=== PATIENT | male | born 1945 | race Caucasian/White ===

== ENCOUNTER → 2024-07-30 | Outpatient (CLI) | payer MEDICARE, BC, SELFPAY ==
--- NOTE | 2024-07-30 | XR_ITS ---
Examination: PA lateral chest 2 views Technique: Upright PA lateral chest 2 views Exam date and time: July 30, 2024 at 0712 hrs. Comparison January 16, 2023 Indications: Shortness of breath congestion beginning 2 weeks ago. Findings: Suspicious for early right perihilar pneumonia There is scarring at the right cardiophrenic angle noted on the prior chest film No pulmonary edema Significant osteopenia Impression: Suspicious for early right perihilar pneumonia
[2024-07-30 08:39] LABS: Basophils % (Auto) 1 % (0-2.5); Eosinophils % (Auto) 4 % (0-10); Hematocrit 33.8 % (41.0-53.0); Hemoglobin 11.9 g/dL (13.5-16.0); Lymphocytes # (Auto) 2.1 Thou/mm3 (1.0-4.8); Lymphocytes % (Auto) 33 % (10-50); Mean Corpuscular HGB Conc 35.2 g/dl (31.0-37.0); Mean Corpuscular Hemoglobin 42.5 pg (25.0-35.0); Mean Corpuscular Volume 121 fL (80-100); Monocytes # (Auto) 0.4 Thou/mm3 (0.0-0.8); Monocytes % (Auto) 6 % (0-12); Neutrophils # (Auto) 3.7 Thou/mm3 (1.8-7.7); Neutrophils % (Auto) 56 % (37-80); Platelet Count 333 Thou/mm3 (140-440); RDW Standard Deviation 62.4 fL (35.1-43.9); White Blood Count 6.5 Thou/mm3 (3.8-10.6)
[2024-07-30 08:40] LABS: Eosinophils # (Auto) 0.3 Thou/mm3 (0.0-0.5); Immature Granulocytes % (Auto) 0 % (0-0); Immature Granulocytes Auto 0.02 Thou/mm3 (0.00-0.00); Nucleated Red Blood Cell % 0 /100 WBC (0)
[2024-07-30 09:02] LABS: B-Type Natriuretic Peptide 69 pg/mL (0-100); Sed Rate (ESR) 11 mm/hr (0-20)
[2024-07-30 09:41] LABS: Alanine Aminotransferase 19 U/L (10-49); Albumin, Serum 4.5 gm/dL (3.4-4.8); Albumin/Globulin Ratio 2.3 (1.2-2.2); Alkaline Phosphatase 94 U/L (46-116); Anion Gap 6 (7-16); Aspartate Amino Transferase 22 U/L (0-34); BUN/Creatinine Ratio 13 Ratio (12-20); Bilirubin,Total 0.7 mg/dL (0.3-1.2); Blood Urea Nitrogen 17 mg/dL (9-23); Calcium 9.5 mg/dL (8.3-10.6); Calcium (Corrected) 9.5 mg/dL (8.5-10.1); Carbon Dioxide 24.6 mMol/L (20.0-31.0); Chloride 111 mMol/L (98-107); Creatinine (Component) 1.3 mg/dL (0.6-1.3); Glucose 117 mg/dL (74-106); Osmolality,Calculated 285 (275-295); Potassium 4.7 mMol/L (3.4-5.1); Sodium 142 mMol/L (136-145); Total Protein 6.5 gm/dL (5.7-8.2); eGFR 55 See Note
[2024-07-30 17:36] LABS: Path Review Blood Smear Sent to Pathologist
== END | disposition home or self-care (01) ==
LOC: CDIM 06:46 → COPL 07:18
PROVIDERS: PCP Internal Medicine; Referring Provider Internal Medicine; Visit Provider Radiology Diagnostic Radiology
DX: R05.3 Chronic cough (principal); R06.09 Other forms of dyspnea; R22.9 Localized swelling, mass and lump, unspecified
CPT/HCPCS: 36415; 71046; 80053; 83880; 85025; 85652

== ENCOUNTER 2024-12-02 18:03 | Emergency (ER) | payer MEDICARE, BC, SELFPAY ==
--- NOTE | 2024-12-02 18:15 | EKG_ITS ---
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
--- NOTE | 2024-12-02 18:20 | XR_ITS ---
Examination: PA lateral chest 2 views TECHNIQUE: Upright PA lateral chest 2 views Exam date and time: December 02, 2024 1831 hours Comparison July 30, 2024 INDICATIONS: Shortness of breath months FINDINGS: Mild prominence left ventricle There appear to be bilateral old rib fractures but clinical correlation advised No pulmonary edema Mild opacity right base suspicious for early pneumonia IMPRESSION: Suspicious for early pneumonia right base As clinically warranted, consider bilateral rib series follow-up
--- NOTE | 2024-12-02 18:20 | PD.EDRME ---
Rapid Medical Screening Exam RME Arrival date/time: 12/02/24 18:03 79 yo m present to ED for c/o of elevated k 6.1 today I have greeted and performed a focused initial assessment of this patient. A comprehensive ED assessment and evaluation of the patient, analysis of all test results, and completion of the medical decision making process will be conducted by additional ED providers. Chief Complaint: General Adult/Misc Complain
[2024-12-02 18:35] VITALS: BP 142/84; PULSE 84; RESP 18; TEMP 37.1; O2SAT 96; BMI 32.8
[2024-12-02 19:30] LABS: Basophils % (Auto) 1 % (0-2.5); Eosinophils # (Auto) 0.3 Thou/mm3 (0.0-0.5); Eosinophils % (Auto) 4 % (0-10); Hematocrit 35.3 % (41.0-53.0); Hemoglobin 12.3 g/dL (13.5-16.0); Immature Granulocytes % (Auto) 0 % (0-0); Immature Granulocytes Auto 0.01 Thou/mm3 (0.00-0.00); Lymphocytes # (Auto) 2.8 Thou/mm3 (1.0-4.8); Lymphocytes % (Auto) 40 % (10-50); Mean Corpuscular HGB Conc 34.8 g/dl (31.0-37.0); Mean Corpuscular Hemoglobin 38.7 pg (25.0-35.0); Mean Corpuscular Volume 111 fL (80-100); Monocytes # (Auto) 0.5 Thou/mm3 (0.0-0.8); Monocytes % (Auto) 7 % (0-12); Neutrophils # (Auto) 3.4 Thou/mm3 (1.8-7.7); Neutrophils % (Auto) 49 % (37-80); Nucleated Red Blood Cell % 0 /100 WBC (0); Platelet Count 273 Thou/mm3 (140-440); Red Blood Count 3.18 Miln/mm3 (4.50-5.90); White Blood Count 7.1 Thou/mm3 (3.8-10.6)
[2024-12-02 19:53] LABS: B-Type Natriuretic Peptide 28 pg/mL (0-100)
[2024-12-02 20:05] LABS: Alanine Aminotransferase 12 U/L (10-49); Albumin, Serum 4.3 gm/dL (3.4-4.8); Albumin/Globulin Ratio 1.8 (1.2-2.2); Alkaline Phosphatase 61 U/L (46-116); Anion Gap 10 (7-16); Aspartate Amino Transferase 14 U/L (0-34); BUN/Creatinine Ratio 14 Ratio (12-20); Bilirubin,Total 0.5 mg/dL (0.3-1.2); Blood Urea Nitrogen 23 mg/dL (9-23); Calcium 9.4 mg/dL (8.3-10.6); Calcium (Corrected) 9.4 mg/dL (8.5-10.1); Carbon Dioxide 21.5 mMol/L (20.0-31.0); Chloride 109 mMol/L (98-107); Creatinine (Component) 1.7 mg/dL (0.6-1.3); Globulin 2.4 gm/dL (2.3-3.5); Glucose 141 mg/dL (74-106); Lipase 77 U/L (12-53); Magnesium 1.8 mg/dL (1.6-2.6); Osmolality,Calculated 285 (275-295); Potassium 5.3 mMol/L (3.4-5.1); Sodium 140 mMol/L (136-145); Total Protein 6.7 gm/dL (5.7-8.2); Troponin I < 0.002 ng/mL (0.0-0.045); eGFR 40 See Note
[2024-12-02 21:02] VITALS: BP 164/83; PULSE 79; RESP 18; TEMP 36.6; O2SAT 97
--- NOTE | 2024-12-02 21:13 | PC.NURSE ---
Pt to room 7 at this time from lobby; assumed care.
--- NOTE | 2024-12-02 21:16 | PD.EDADULT ---
ED General RME/HPI General Chief complaint: General Adult/Misc Complain Stated complaint: K+ ELEVATED, [facility] Arrival date/time: 12/02/24 18:03 RME / HPI RME / HPI narrative: 12/02/24 18:03 79 yo m present to ED for c/o of elevated k 6.1 today I have greeted and performed a focused initial assessment of this patient. A comprehensive ED assessment and evaluation of the patient, analysis of all test results, and completion of the medical decision making process will be conducted by additional ED providers. Dr. Alamo?s Main ED Evaluation: 79yo male presents to the ED for a chief complaint of abnormal labs. Patient states he had labs done at [facility] in [place] today. He states he received a call at 1700 and was told to come in for evaluation due to his Potassium being elevated at 6.1. Patient denies any chest pain, palpitations, shortness of breath or any other associated symptoms. Related Data Allergies Allergy/AdvReac Type Severity Reaction Status Date / Time Penicillins Allergy Severe DYSPNEA Verified 12/02/24 18:07 acetaminophen Allergy Intermediate WELTS Verified 12/02/24 18:07 Review of Systems Review of Systems Systems Reviewed: All systems reviewed, normal except as documented Past Medical History Social History SMOKING STATUS: Former smoker ED Exam Narrative Physical exam: GENERAL APPEARANCE: alert and oriented x 4, well-developed, well-nourished, no acute distress VITALS: All vitals were reviewed and the pulse ox is 97% on room air, which is normal according to my interpretation. HEENT: Normocephalic, atraumatic; pupils equal, round, reactive to light; EOMI; mucous membranes pink, moist; oropharynx clear NECK: Supple LUNGS: CTABL; no wheezes, no rales, no rhonchi HEART: Regular rate, regular rhythm; normal S1, S2; no murmurs ABDOMEN: non distended; normal BS; soft, no tenderness, no guarding, no rebound; no masses, no organomegaly, no hernia BACK: no CVA tenderness EXTREMITIES: atraumatic; no edema NEUROLOGIC: awake; alert and oriented x4; cranial nerves II-XII grossly intact; no focal sensory or motor deficits PSYCHIATRIC: appropriate mood and affect SKIN: warm, dry, normal color; no rashes Course Course Course Narrative: CXR is ordered for determining the etiology of shortness of breath per SHEREEN Rodrigues. Quality Measures none Orders Category Date Time Status EKG (ED ONLY) *Do not use* NOW Care 12/02/24 18:15 Completed IV [Insert IV] STAT Care 12/02/24 18:20 Completed EKG (ED Only) Stat Exams 12/02/24 18:15 Draft XR chest 2V Stat Exams 12/02/24 18:20 Completed BNP [B-Type Natriuretic Peptide] Stat Lab 12/02/24 19:10 Completed CBC Stat Lab 12/02/24 19:10 Completed CMP [Comprehensive Metabolic Panel] Stat Lab 12/02/24 19:10 Completed Lipase Stat Lab 12/02/24 19:10 Completed Mag [Magnesium] Stat Lab 12/02/24 19:10 Completed Troponin I Stat Lab 12/02/24 19:10 Completed Vital Signs Vital signs: Vital Signs Temperature 98.7 F 12/02/24 18:35 Pulse Rate 84 12/02/24 18:35 Respiratory Rate 18 12/02/24 18:35 Blood Pressure 142/84 H 12/02/24 18:35 Pulse Oximetry (%) 96 12/02/24 18:35 Oxygen Delivery Method Room Air 12/02/24 18:35 [facility] Patient data External records reviewed:: [facility] previous records (Per chart review, patient has no previous ED visits to this facility.) Clinical information provided by:: patient Social determinants that could affect healthcare access:: none Patient has the following chronic illnesses:: none How is presenting disease/condition affected by chronic disease/condition?: no chronic disease Evaluation data The following diagnostics were reviewed and interpreted by me:: lab results, radiology exam(s) and EKG tracing(s) Lab and/or radiology exams considered but not ordered:: none Interpretation Summary: CBC is normal, Potassium is 5.3, Creatinine is 1.7, Troponin is normal, BNP is normal, according to my interpretation. EKG done at 1825, NSR, rate of 80, normal axis, no ectopy, no acute ischemia, no signs of hyperkalemia, according to my interpretation. -------- [facility] Report Signed Patient: WILLIAMS CHING [facility]. Record#: [id number] Birthdate: 1945 Age/Sex: 79 / M Location: [facility] Attending Dr: Ordering Physician: Junior Rodrigues PA-C Date of Service: 12/02/24 Procedure(s): XR chest 2V Accession Number(s): [id number] cc: Wilber Calzada MD; Junior Rodrigues PA-C~ Examination: PA lateral chest 2 views TECHNIQUE: Upright PA lateral chest 2 views Exam date and time: December 02, 2024 1831 hours Comparison July 30, 2024 INDICATIONS: Shortness of breath months FINDINGS: Mild prominence left ventricle There appear to be bilateral old rib fractures but clinical correlation advised No pulmonary edema Mild opacity right base suspicious for early pneumonia IMPRESSION: Suspicious for early pneumonia right base As clinically warranted, consider bilateral rib series follow-up Dictated By: Wilber Calzada MD Signed By: <Electronically signed by Wilber Calzada MD in [place]> 12/02/24 1845 Medications Medications considered but not ordered:: none Medication administrations:: none Consultations Consultation(s) initiated? (list below): No Diagnosis Differential Diagnosis ED Complaint MDM: hyperkalemia, lab error, pseudohyperkalemia Most likely diagnosis given after review of the tests above:: see clinical impression below Admission Indicated Admission indicated?: not indicated Explain why admission is indicated or not indicated:: No criteria for admission. Admission Request Was there a request for admission?: No Disposition Plan Disposition Plan: Discharge Discharge Attestation Discharge Attestation: The patient and all family members were given an opportunity to ask questions and understood the discharge instructions. Discharge instructions specifically effects, indications for sooner follow up or return to the emergency department, and the expected course of current diagnosis. Patient condition: Stable Medical Decision Making MDM Narrative MDM Narrative: Scribe Attestation: 12/02/24 - I, Frances Bermeo am scribing for and in the presence of Dr. Alamo. Differential Diagnosis Differential Diagnosis: hyperkalemia, lab error, pseudohyperkalemia Lab Data 12/02/24 19:10 12/02/24 19:10 Labs: Lab Results 12/02/24 Range/Units 19:10 WBC 7.1 (3.8-10.6) Thou/mm3 RBC 3.18 L (4.50-5.90) Miln/mm3 Hgb 12.3 L (13.5-16.0) g/dL Hct 35.3 L (41.0-53.0) % MCV 111 H (80-100) fL MCH 38.7 H (25.0-35.0) pg MCHC 34.8 (31.0-37.0) g/dl RDW Std Deviation 62.0 H (35.1-43.9) fL Plt Count 273 (140-440) Thou/mm3 Neut % (Auto) 49 (37-80) % Lymph % (Auto) 40 (10-50) % [place] % (Auto) 7 (0-12) % Eos % (Auto) 4 (0-10) % Baso % (Auto) 1 (0-2.5) % Neut # (Auto) 3.4 (1.8-7.7) Thou/mm3 Lymph # (Auto) 2.8 (1.0-4.8) Thou/mm3 [place] # (Auto) 0.5 (0.0-0.8) Thou/mm3 Eos # (Auto) 0.3 (0.0-0.5) Thou/mm3 Baso # (Auto) 0.0 (0.0-0.2) Thou/mm3 Immature Gran # (Auto) 0.01 H (0.00-0.00) Thou/mm3 Absolute Nucleated RBC 0.00 (0.00-0.00) Thou/mm3 Immature Gran % 0 (0-0) % Nucleated RBC % 0 (0) /100 WBC Sodium 140 (136-145) mMol/L Potassium 5.3 H (3.4-5.1) mMol/L Chloride 109 H (98-107) mMol/L Carbon Dioxide 21.5 (20.0-31.0) mMol/L Anion Gap 10 (7-16) BUN 23 (9-23) mg/dL Creatinine 1.7 H (0.6-1.3) mg/dL Estim Creat Clear Calc 35.0 L (>60) mL/min eGFR 40 L (60 - ) See Note BUN/Creatinine Ratio 14 (12-20) Ratio Glucose 141 H (74-106) mg/dL Calculated Osmolality 285 (275-295) Calcium 9.4 (8.3-10.6) mg/dL Corrected Calcium 9.4 (8.5-10.1) mg/dL Magnesium 1.8 (1.6-2.6) mg/dL Total Bilirubin 0.5 (0.3-1.2) mg/dL AST 14 (0-34) U/L ALT 12 (10-49) U/L Alkaline Phosphatase 61 (46-116) U/L Troponin I < 0.002 (0.0-0.045) ng/mL B-Natriuretic Peptide 28 (0-100) pg/mL Total Protein 6.7 (5.7-8.2) gm/dL Albumin 4.3 (3.4-4.8) gm/dL Globulin 2.4 (2.3-3.5) gm/dL Albumin/Globulin Ratio 1.8 (1.2-2.2) Lipase 77 H (12-53) U/L Discharge Plan Plan Patient Disposition: HOME (Self Care) Disposition Comment: Stable for discharge home Patient condition on transfer: Stable Prescriptions/Referrals [facility] - In 1 week Problem List Clinical Impression: Normal exam Patient/Caregiver Discharge Instructions Discharge Activity: activity as tolerated Education Materials: Reducing Your Health Risks ..., ED Medical Screening Exam, Nonemergent Additional Instructions: We rechecked your potassium level when you got here to the emergency department and it is 5.3. This is almost a normal potassium level and not high enough for us to treat. Just carry on with a normal diet and please [facility] within the next several days. Return to the emergency department if you have any worsening or any further medical problems Print Language: Malian Stand Alone Forms: Award Info., Patient Portal Info Letter
--- NOTE | 2024-12-02 21:30 | PC.NURSE ---
Dr. Alamo at the bedside at this time.
[2024-12-02 21:42] VITALS: RESP 18
== END 2024-12-02 21:43 | disposition home or self-care (01) ==
PROVIDERS: Physician Assistant; Emergency Provider Emergency Medicine
DX: R06.02 Shortness of breath (principal)
CPT/HCPCS: 36415; 71046; 80053; 83690; 83735; 83880; 84484; 85025; 93005; 99283

== ENCOUNTER → 2025-02-03 | Outpatient (CLI) | payer MEDICARE, BC, SELFPAY ==
[2025-02-03 08:47] LABS: Potassium 5.1 mMol/L (3.4-5.1)
== END | disposition home or self-care (01) ==
LOC: COPL 06:37
PROVIDERS: PCP Internal Medicine; Referring Provider Internal Medicine; Visit Provider Internal Medicine
DX: E87.5 Hyperkalemia (principal)
CPT/HCPCS: 36415; 84132

== ENCOUNTER → 2025-05-21 | Outpatient (CLI) | payer MEDICARE, BC, SELFPAY ==
--- NOTE | 2025-05-21 | XR_ITS ---
Examination: PA lateral chest 2 views TECHNIQUE: Upright PA lateral chest 2 views Date and time: May 21, 2025 0731 hours INDICATIONS: Hypertension diabetes shortness of breath one year FINDINGS: Probable fat pad at the right cardiophrenic angle but clinical correlation advised Mild prominence left ventricle Prominent osteopenia IMPRESSION: Probable fat pad at the right cardiophrenic angle No pneumonia or pulmonary edema
[2025-05-21 07:59] LABS: Quantiferon-TB* See Sep Rpt
[2025-05-21 09:05] LABS: Collection Type, Urine Clean Catch
[2025-05-21 09:53] LABS: Basophils # (Auto) 0.0 Thou/mm3 (0.0-0.2); Basophils % (Auto) 1 % (0-2.5); Eosinophils # (Auto) 0.1 Thou/mm3 (0.0-0.5); Eosinophils % (Auto) 3 % (0-10); Hematocrit 27.7 % (41.0-53.0); Hemoglobin 9.8 g/dL (13.5-16.0); Immature Granulocytes Auto 0.01 Thou/mm3 (0.00-0.00); Lymphocytes # (Auto) 1.6 Thou/mm3 (1.0-4.8); Lymphocytes % (Auto) 30 % (10-50); Mean Corpuscular HGB Conc 35.4 g/dl (31.0-37.0); Mean Corpuscular Hemoglobin 44.7 pg (25.0-35.0); Mean Corpuscular Volume 127 fL (80-100); Monocytes # (Auto) 0.3 Thou/mm3 (0.0-0.8); Monocytes % (Auto) 5 % (0-12); Neutrophils # (Auto) 3.4 Thou/mm3 (1.8-7.7); Neutrophils % (Auto) 62 % (37-80); Nucleated Red Blood Cell # 0.00 Thou/mm3 (0.00-0.00); Nucleated Red Blood Cell % 0 /100 WBC (0); Platelet Count 211 Thou/mm3 (140-440); RDW Standard Deviation 65.7 fL (35.1-43.9); Red Blood Count 2.19 Miln/mm3 (4.50-5.90); White Blood Count 5.5 Thou/mm3 (3.8-10.6)
[2025-05-21 09:57] LABS: Glucose Estimated Average 131 mg/dL (80-131); Hemoglobin A1C 6.2 % Hgb (4.8-6.0)
[2025-05-21 09:58] LABS: Bilirubin,Urine Negative (Negative); Blood,Urine Negative (Negative); Clarity,Urine Clear (Clear/Hazy); Color,Urine Lt-Yellow (Lt Yel-Yel); Culture Indicated,Urine Not Indicated; Glucose, Urine Negative (Negative); Ketones,Urine Negative (Negative); Leukocyte Esterase,Urine Negative (Negative); Nitrite,Urine Negative (Negative); PH,Urine 7.0 (5.0-7.0); Protein,Urine Negative (Neg - Trace); RBC,Urine 2 /hpf (0-3); Specific Gravity,Urine 1.016 (1.001-1.035); Squamous Epithelial Cell,Urine < 1 /hpf (0-5); Urobilinogen,Urine Negative mg/dL (0.0-1.0); WBC,Urine < 1 /hpf (0-5)
[2025-05-21 10:15] LABS: Ferritin 168 ng/mL (10.5-307.3); Iron 139 mcg/dL (65-175); Percent Iron Saturation 40 % (20-55); Total Iron Binding Capacity 341 mcg/dL (250-425); Unsaturated Iron Binding 202 (225-295)
[2025-05-21 10:30] LABS: Creatinine MALB Rnd Ur 76 mg/dL (30-125); Microalbumin, Random Urine < 3 mg/L (0-300)
[2025-05-21 10:35] LABS: Alanine Aminotransferase 11 U/L (10-49); Albumin, Serum 4.1 gm/dL (3.4-4.8); Albumin/Globulin Ratio 2.4 (1.2-2.2); Alkaline Phosphatase 67 U/L (46-116); Anion Gap 10 (7-16); Aspartate Amino Transferase 18 U/L (0-34); BUN/Creatinine Ratio 13 Ratio (12-20); Bilirubin,Total 1.6 mg/dL (0.3-1.2); Blood Urea Nitrogen 17 mg/dL (9-23); Calcium 10.0 mg/dL (8.3-10.6); Calcium (Corrected) 10.0 mg/dL (8.5-10.1); Carbon Dioxide 24.4 mMol/L (20.0-31.0); Cardiac Risk Estimate 3.5 RATIO (4.0-6.7); Chloride 110 mMol/L (98-107); Cholesterol 122 mg/dL (132-200); Creatinine (Component) 1.3 mg/dL (0.6-1.3); Free T4 (Free Thyroxine) 0.99 ng/dL (0.89-1.76); Globulin 1.7 gm/dL (2.3-3.5); Glucose 135 mg/dL (74-106); HDL Cholesterol 35 mg/dL (40-60); LDL Cholesterol,Calculated 60 mg/dL (0-130); Magnesium 1.5 mg/dL (1.6-2.6); Osmolality,Calculated 290 (275-295); Phosphorous 3.0 mg/dL (2.4-5.1); Potassium 5.3 mMol/L (3.4-5.1); Sodium 144 mMol/L (136-145); Thyroid Stimulating Hormone 4.14 uIU/mL (0.55-4.78); Total Protein 5.8 gm/dL (5.7-8.2); Triglycerides 133 mg/dL (30-150); eGFR 55 See Note
[2025-05-21 10:46] LABS: Uric Acid 8.1 mg/dL (3.7-9.2)
[2025-05-21 11:01] LABS: Hepatitis C Antibody Non Reactive (Non React); Vitamin D 25 Hydroxy Total 21.7 ng/mL (7.3-40.2)
[2025-05-25 15:34] LABS: PSA, Free 0.26 ng/mL; PSA, Total 0.5 ng/mL (< OR = 4.0)
[2025-05-26 06:54] LABS: HIV Ag/Ab, 4th Gen NON-REACTIVE
== END | disposition home or self-care (01) ==
LOC: CDIM 06:59 → COPL 07:38
PROVIDERS: PCP Nurse Practitioner Family; Referring Provider Nurse Practitioner Family; Visit Provider Nurse Practitioner Family
DX: R06.02 Shortness of breath (principal); Z00.00 Encounter for general adult medical examination without abnormal findings; M54.9 Dorsalgia, unspecified; M54.59 Other low back pain; S46.012S Strain of muscle(s) and tendon(s) of the rotator cuff of left shoulder, sequela; X58.XXXS Exposure to other specified factors, sequela; E11.65 Type 2 diabetes mellitus with hyperglycemia; D50.9 Iron deficiency anemia, unspecified; E03.9 Hypothyroidism, unspecified; I10 Essential (primary) hypertension
CPT/HCPCS: 36415; 71046; 80053; 80061; 81001; 82043; 82306; 82570; 82728; 83036; 83540; 83550; 83735; 84100; 84153; 84154; 84439; 84443; 84550; 85025; 86480; 86803; 87389

== ENCOUNTER → 2025-08-18 | Outpatient (CLI) | payer MEDICARE, BC, SELFPAY ==
--- NOTE | 2025-08-18 09:30 | XR_ITS ---
Examination: MRI lumbar spine without contrast Date and time of exam: August 18, 2025, 0958 hours, comparison February 26, 2017 INDICATIONS: Low back pain 3 years after falling with injury to lower back, back pain radiating to legs numbness in the legs and paresthesias Technique: Multiple MRI axial and sagittal sections lumbar spine. Sagittal T2-weighted images, TR 3500, TE 118 T1 weighted transverse sections, TR 688 T8.5, T2-weighted sagittal sections T1 weighted sagittal sections TR 621, TE 30 T2 axial sections, TR 4, 190, TE 84. Findings: Lumbar fusion L4-L5 Grade 1 spondylolisthesis L5 on S1 Advanced degenerative disc disease L5-S1 Reactive bony endplate change L4-L5 L5-S1 10 mm central lumbar disc bulge extending to the foraminal regions with moderate to severe bilateral L5 ganglionic compression L4-L5 no disc protrusion L3-L4 4 mm central lumbar disc bulge L2-L3 no disc protrusion L1-L2 no disc protrusion IMPRESSION: L5-S1 grade 1 spondylolisthesis L5-S1 10 mm central lumbar disc bulge extending to the foraminal regions with moderate to severe bilateral L5 ganglionic compression L3-L4 a 4 mm central lumbar disc bulge
== END | disposition home or self-care (01) ==
PROVIDERS: PCP Nurse Practitioner Family; Referring Provider Nurse Practitioner Family; Visit Provider Nurse Practitioner Family
DX: M51.370 Other intervertebral disc degeneration, lumbosacral region with discogenic back pain only (principal); M51.360 Other intervertebral disc degeneration, lumbar region with discogenic back pain only; M43.10 Spondylolisthesis, site unspecified
CPT/HCPCS: 72148